=== PATIENT | male | born 1970 | race American Indian/Alaskan Native ===

== ENCOUNTER 2021-08-08 00:18 | Emergency (ER) | payer MEDICARE ==
[2021-08-08] MEDS: KETOROLAC 30 MG/1 ML INJ IM ONE (04:36)
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
[2021-08-08 05:33] VITALS: BP 108/69
== END 2021-08-08 05:33 | disposition home or self-care (01) ==
LOC: ED 00:18
DX: S39.012A Strain of muscle, fascia and tendon of lower back, initial encounter (principal); X58.XXXA Exposure to other specified factors, initial encounter; Y93.89 Activity, other specified; Y92.89 Other specified places as the place of occurrence of the external cause; Y99.8 Other external cause status
CPT/HCPCS: 96372; 99283; J1885